=== PATIENT | female | born 1955 | race African-American/Black ===

== ENCOUNTER → 2017-09-07 | Outpatient (CLI) | payer BC ==
[~2017-09-07] MED LIST: ACTOS30 MG; BYDUREON PEN2 MG SQ; GLUCOPHAGE1000 MG PO; GLUCOPHAGE500 MG/TAB PO; NATURAL IRON65 MG PO; NEXIUM 40MG40 MG PO; PRINZIDE 12.5 M1 TAB PO; TRULICITY1.5 MG/0.5 SQ; ZOCOR 40MG40 MG PO
== END ==
LOC: MC.RAD 11:27
DX: Z12.31 Encounter for screening mammogram for malignant neoplasm of breast (principal); E11.9 Type 2 diabetes mellitus without complications

== ENCOUNTER 2017-09-08 08:09 | Day surgery (SDC) | payer BC ==
[~2017-09-08] VITALS: Ht 167.6 cm; Wt 108.5 kg
[~2017-09-08 08:09] MED LIST changes: -GLUCOPHAGE1000 MG PO; -NATURAL IRON65 MG PO; -TRULICITY1.5 MG/0.5 SQ
[2017-09-08] MEDS ORDERED: TRULICITY1.5 MG/0.5 SQ (08:19)
[2017-09-08] MEDS ORDERED: GLUCOPHAGE1000 MG PO (08:21)
[2017-09-08] MEDS ORDERED: NATURAL IRON65 MG PO (08:23)
[2017-09-08 08:30] VITALS: BP 134/71; PULSE 84; TEMP 98.4
[2017-09-08 10:25] VITALS: BP 135/75; PULSE 79; TEMP 98.1
[2017-09-08 10:40] VITALS: BP 129/78; PULSE 74
[2017-09-08 10:50] VITALS: BP 141/87; PULSE 75
== END 2017-09-08 11:23 | disposition home or self-care (01) ==
LOC: SDCO 08:09
DX: Z12.11 Encounter for screening for malignant neoplasm of colon (principal); D12.2 Benign neoplasm of ascending colon; K62.1 Rectal polyp; E11.9 Type 2 diabetes mellitus without complications; D50.0 Iron deficiency anemia secondary to blood loss (chronic); Z87.11 Personal history of peptic ulcer disease
CPT/HCPCS: J2250; J3010; J7030

== ENCOUNTER → 2018-11-06 | Outpatient (CLI) | payer BC ==
[~2018-11-06] MED LIST changes: +GLUCOPHAGE1000 MG PO; +NATURAL IRON65 MG PO; +TRULICITY1.5 MG/0.5 SQ
== END ==
LOC: MC.RAD 15:56
DX: Z12.31 Encounter for screening mammogram for malignant neoplasm of breast (principal); E11.9 Type 2 diabetes mellitus without complications

== ENCOUNTER → 2019-11-14 | Outpatient (CLI) | payer BC | LOC: MC.RAD 14:21 | DX: Z12.31 Encounter for screening mammogram for malignant neoplasm of breast (principal) ==

== ENCOUNTER → 2020-12-18 | Outpatient (CLI) | payer BC ==
[~2020-12-18] MED LIST changes: +BIOTIN5000 MCG PO; +FARXIGA10 PO; +LIPITOR 80MG80 MG PO; +OMEGA-31 SGL PO; +ONE-A-DAY ESSE1 EACH PO; +VITAMIN B12 1541 TAB PO; +VITAMIN D3400 I1 PO
== END ==
LOC: MC.RAD 10:16
DX: Z12.31 Encounter for screening mammogram for malignant neoplasm of breast (principal)

== ENCOUNTER 2021-01-01 06:52 | Day surgery (SDC) | payer BC ==
[~2021-01-01] VITALS: Ht 167.6 cm; Wt 90.5 kg
[~2021-01-01 06:52] MED LIST changes: -BIOTIN5000 MCG PO; -FARXIGA10 PO; -LIPITOR 80MG80 MG PO; -OMEGA-31 SGL PO; -ONE-A-DAY ESSE1 EACH PO; -VITAMIN B12 1541 TAB PO; -VITAMIN D3400 I1 PO
[2021-01-01 07:32] VITALS: BP 127/77; PULSE 93; TEMP 97.3
[2021-01-01] MEDS ORDERED: FARXIGA10 PO (07:41)
[2021-01-01] MEDS ORDERED: LIPITOR 80MG80 MG PO (07:42)
[2021-01-01] MEDS ORDERED: ONE-A-DAY ESSE1 EACH PO (07:42)
[2021-01-01] MEDS ORDERED: VITAMIN D3400 I1 PO (07:43)
[2021-01-01] MEDS ORDERED: VITAMIN B12 1541 TAB PO (07:44)
[2021-01-01] MEDS ORDERED: BIOTIN5000 MCG PO (07:45)
[2021-01-01] MEDS ORDERED: OMEGA-31 SGL PO (07:45)
[2021-01-01 08:20] VITALS: BP 110/70; PULSE 77; TEMP 96.9
[2021-01-01 08:30] VITALS: BP 122/63; PULSE 84
--- NOTE | 2021-01-01 08:58 | NUR ---
0820 Pt returns from endo procedure via cart to [facility] 5. Pt ambulates from cart to recliner with RN assist. Monitors on and alarms set. Call light within reach. Report received from Endo RN. Pt alert and oriented. Pt denies any pain or nausea. Pt requests muffin and coffee. 0830 Pt taking food and drink well. No complaints voiced from pt. 0847 Discharge instructions given to pt. All questions answered to her satisfaction. Handed to her are a thank you card and discharge information. 0858 Pt transferred out of hospital via wheelchair and CHRISTIAN José assist, to private vehicle driven by friend.
== END 2021-01-01 08:58 | disposition home or self-care (01) ==
LOC: SDCO 06:52
DX: Z12.11 Encounter for screening for malignant neoplasm of colon (principal); K63.5 Polyp of colon; K62.1 Rectal polyp; K57.30 Diverticulosis of large intestine without perforation or abscess without bleeding; E11.9 Type 2 diabetes mellitus without complications; E78.5 Hyperlipidemia, unspecified; I10 Essential (primary) hypertension; D50.9 Iron deficiency anemia, unspecified; Z20.822 Contact with and (suspected) exposure to COVID-19; M19.90 Unspecified osteoarthritis, unspecified site; Z79.84 Long term (current) use of oral hypoglycemic drugs; Z79.899 Other long term (current) drug therapy
CPT/HCPCS: J2704; J7030

== ENCOUNTER → 2022-01-12 | Outpatient (CLI) | payer BC ==
[~2022-01-12] MED LIST changes: +BIOTIN5000 MCG PO; +FARXIGA10 PO; +LIPITOR 80MG80 MG PO; +OMEGA-31 SGL PO; +ONE-A-DAY ESSE1 EACH PO; +VITAMIN B12 1541 TAB PO; +VITAMIN D3400 I1 PO
== END ==
LOC: MC.RAD 13:50
DX: Z12.31 Encounter for screening mammogram for malignant neoplasm of breast (principal)

== ENCOUNTER → 2024-03-19 | Outpatient (CLI) | payer BC | LOC: MC.RAD 09:14 | DX: Z12.31 Encounter for screening mammogram for malignant neoplasm of breast (principal) ==